=== PATIENT | female | born 1990 | race Caucasian/White ===

== ENCOUNTER 2017-09-18 17:33 | Emergency (ER) | payer MEDICAID ==
[~2017-09-18] VITALS: Ht 175.3 cm; Wt 113.0 kg
[2017-09-18 17:36] VITALS: BP 128/71
== END 2017-09-18 19:35 | disposition left against medical advice (07) ==
LOC: ER 17:46 → EDBD 17:46 → ER 19:35
DX: Z53.21 Procedure and treatment not carried out due to patient leaving prior to being seen by health care provider (principal)